=== PATIENT | female | born 1975 | race Caucasian/White ===

== ENCOUNTER 2017-01-06 11:56 | Emergency (ER) | payer OTHER ==
[2017-01-06 12:02] VITALS: BP 128/86; TEMP 99; BMI 41.8
[2017-01-06] MEDS ORDERED: SODIUM CHLORIDE 1,000 ML IV STA (12:20)
[2017-01-06] MEDS ORDERED: ZOFRAN 4 MG/2 ML IVP STA (12:20)
--- NOTE | 2017-01-06 12:21 | ED.PDOC ---
General ED Provider: Dr. CRUZ ALANIZ JR Chief Complaint: Nausea/Vomiting Stated Complaint: has had nausea with vomiting off and on since .-- epigastric discomfort that radiates thru to back-some dizziness at times-- chills at intervals. [ End ]1 week 99.0 65 16 97% 128/86 6/10 emesis couple times a day uses camilo once for back no benefit taking food and fluids fair Time Seen by Physician: 12:21 Mode of Arrival: Walk-In Information Source: Patient Exam Limitations: No limitations Primary Care Provider: LISA WEEKS Nursing and Triage Documentation Reviewed and Agree: No Review of Systems - Review Of Systems Constitutional: Reports: Chills, Fever, Malaise, Weakness Eyes: Reports: No symptoms Ears, Nose, Mouth, Throat: Reports: No symptoms Respiratory: Reports: No symptoms Cardiac: Reports: Lightheadedness GI: Reports: Abdominal pain, Nausea, Vomiting : Reports: No symptoms Musculoskeletal: Reports: Back pain (new) Skin: Reports: No symptoms Neurological: Reports: Other (dizzy) Endocrine: Reports: No symptoms Hematologic/Lymphatic: Reports: No symptoms All Other Systems: Other Past Medical History - Past Medical History Endocrine: Reports: None Cardiovascular: Reports: None Respiratory: Reports: None Hematological: Reports: None Gastrointestinal: Reports: None Genitourinary: Reports: None Neuro/Psych: Reports: Migraine, Depression Musculoskeletal: Reports: None Cancer: Reports: None Last Menstrual Period: hysterectomy - Surgical History General Surgical History: Reports: Hysterectomy, Cholecystectomy, Tonsillectomy - Family History Family History: Reports: None - Social History Smoking Status: Never smoker Hx Substance Use: No Alcohol Screening: None Physical Exam - Physical Exam Appearance: Ill-appearing Ill-appearing: Mild Pain Distress: Mild Eyes: [place], EOMI, Conjunctiva clear ENT: Ears normal, Nose normal, Oropharynx normal Neck: Supple Respiratory: Airway patent, Breath sounds clear, Breath sounds equal, Respirations nonlabored Cardiovascular: RRR, Pulses normal, No rub, No murmur GI/: Soft, No masses, Bowel sounds normal, No Organomegaly, Tender (RUQ LUQ) Musculoskeletal: Normal strength, ROM intact, No edema, No calf tenderness Skin: Warm, Dry, Normal color Neurological: Sensation intact, Motor intact, Reflexes intact, Cranial nerves intact, Alert, Oriented Psychiatric: Affect appropriate, Mood appropriate Critical Care Note - Critical Care Note Total Time (mins): 0 Course - Course Hematology/Chemistry: 01/06/17 12:35 01/06/17 12:35 Orders, Labs, Meds: Lab Review 01/06/17 01/06/17 12:30 12:35 WBC 5.21 RBC 4.25 Hgb 11.9 L Hct 35.3 L MCV 83.1 MCH 28.0 MCHC 33.7 RDW Coeff of Melanie 12.8 Plt Count 300 Immature Gran % (Auto) 0.4 Neut % (Auto) 62.2 Lymph % (Auto) 28.4 [place] % (Auto) 7.1 Eos % (Auto) 1.3 Baso % (Auto) 0.6 Immature Gran # (Auto) 0.0 Neut # 3.2 Lymph # 1.5 [place] # 0.4 Eos # 0.1 Baso # 0.0 Sodium 139 Potassium 3.8 Chloride 103 Carbon Dioxide 24 Anion Gap 15.8 BUN 16 Creatinine 0.87 Estimated GFR (MDRD) 72.00 BUN/Creatinine Ratio 18.39 Glucose 96 Calcium 9.5 Total Bilirubin 0.67 AST 14 L ALT 17 Alkaline Phosphatase 95 Total Protein 8.0 Albumin 3.8 Globulin 4.2 Albumin/Globulin Ratio 0.90 Amylase 31 Lipase 12 Procalcitonin < 0.05 Urine Color Yellow Urine Clarity Clear Urine pH 6.5 Ur Specific [place] 1.025 Urine Protein Negative Urine Glucose (UA) Negative Urine Ketones Negative Urine Blood Trace-lysed Urine Nitrite Negative Urine Bilirubin Negative Urine Urobilinogen 1.0 Ur Leukocyte Esterase Negative Urine Microscopic RBC 0-2 Ur Squamous Epith Cells 0-2 H. pylori IgG Antibody Negative Orders Category Date Time Status ED IV/MEDIPORT/POWERPORT .ONCE EMERGENCY 01/06/17 12:19 Active ED IV/MEDIPORT/POWERPORT .ONCE EMERGENCY 01/06/17 12:20 Inactive AMYLASE Stat LAB 01/06/17 12:35 Completed BLOOD CULTURE Stat LAB 01/06/17 12:35 Received CBC W/ AUTO DIFF Stat LAB 01/06/17 12:35 Completed COMPREHENSIVE METABOLIC PANEL Stat LAB 01/06/17 12:35 Completed H. PYLORI SCREEN Stat LAB 01/06/17 12:35 Completed LIPASE Stat LAB 01/06/17 12:35 Completed PROCALCITONIN Stat LAB 01/06/17 12:35 Completed URINALYSIS C & S IF INDICATED Stat LAB 01/06/17 12:30 Completed 0.9 % Sodium Chloride [Saline Flush] MEDS 01/06/17 12:19 Active 1 syr IVF PRN PRN Ondansetron HCl/Pf [Zofran 4 mg/2 ml] MEDS 01/06/17 12:20 Discontinued 4 mg IVP ONCE STA Sodium Chloride 0.9% [Sodium Chloride] 1,000 ml MEDS 01/06/17 12:[address] ABDOMEN/PELVIS WO CONTRAST Stat RADS 01/06/17 12:19 Completed Medications Generic Name Dose Route Start Last Admin Trade Name Freq PRN Reason Stop Dose Admin Sodium Chloride 1 syr 01/06/17 12:19 Saline Flush IVF PRN PRN To flush IV Discontinued Medications Generic Name Dose Route Start Last Admin Trade Name Freq PRN Reason Stop Dose Admin Sodium Chloride 1,000 mls @ 1,000 mls/hr 01/06/17 12:20 01/06/17 13:07 Sodium Chloride IV 01/06/17 13:19 1,000 mls/hr BOLUS STA Administration Ondansetron HCl 4 mg 01/06/17 12:20 01/06/17 13:07 Zofran 4 Mg/2 Ml IVP 01/06/17 12:21 4 mg ONCE STA Administration Vital Signs: Temp Pulse Resp BP Pulse Ox 01/06/17 11:56 99 F 65 16 128/86 97 Departure - Departure Time of Disposition: 14:26 Disposition: HOME SELF-CARE Discharge Problem: Nausea, Vomiting Instructions: Gastritis (ED) Condition: Good Pt referred to PMD for follow-up: Yes Additional Instructions: clear liquids for 8-12 hours after vomiting recheck PMD one week Prescriptions: Ondansetron HCl [Zofran Tab] 4 mg PO QID PRN #12 tablet PRN Reason: Nausea / Vomiting Allergies/Adverse Reactions: Allergies codeine Allergy (Severe, Verified 01/06/17 12:04) difficulty breathing Notified to get medical alert necklace tramadol Allergy (Severe, Verified 01/06/17 12:04) difficulty breathing Home Medications: Ambulatory Orders Fluoxetine HCl [Prozac] 60 mg PO DAILY 07/10/15 Prozosin 2 mg DAILY 12/17/15 Ranitidine HCl [Zantac] 300 mg PO 2xdaily 12/17/15 Ondansetron HCl [Zofran Tab] 4 mg PO QID PRN #12 tablet 01/06/17
[2017-01-06 12:53] LABS: BASOPHILS % (AUTO) 0.6 % (0.0-3.0); EOSINOPHILS # (AUTO) 0.1 K/ul (0.0-0.7); EOSINOPHILS % (AUTO) 1.3 % (0.0-7.0); HEMATOCRIT 35.3 % (37.0-47.0); HEMOGLOBIN 11.9 g/dl (12.0-16.0); IMMATURE GRANULOCYTE % (AUTO) 0.4 % (0.0-5.0); LYMPHOCYTES # (AUTO) 1.5 K/uL (0.60-3.4); LYMPHOCYTES % (AUTO) 28.4 (10.0-50.0); MEAN CORPUSCULAR HGB CONC 33.7 (31.8-35.4); MEAN CORPUSCULAR VOLUME 83.1 fl (81.0-99.0); MONOCYTES # (AUTO) 0.4 K/uL (0.4-2.0); MONOCYTES % (AUTO) 7.1 (0-10); NEUTROPHILS # (AUTO) 3.2 K/ul (2.0-6.9); NEUTROPHILS % (AUTO) 62.2; PLATELET COUNT 300 10^3/uL (140-440); RED BLOOD COUNT 4.25 10^6/ul (4.20-5.40); WHITE BLOOD COUNT 5.21 K/ul (4.6-10.2)
[2017-01-06 12:54] LABS: BILIRUBIN,URINE Negative (NEGATIVE); KETONES,URINE Negative (NEGATIVE); LEUKOCYTE ESTERASE ,URINE Negative (NEGATIVE); NITRITE,URINE Negative (NEGATIVE); PH,URINE 6.5 (5-9); PROTEIN,URINE Negative (NEGATIVE); URINE, BLOOD Trace-lysed (NEGATIVE)
[2017-01-06 13:01] LABS: ADD URINE MICROSCOPIC YES
[2017-01-06 13:13] LABS: ALBUMIN 3.8 g/dL (3.4-5.0); ALBUMIN/GLOBULIN RATIO 0.9; ANION GAP 15.8; BILIRUBIN,TOTAL 0.67 mg/dL (0.00-1.20); BUN/CREATININE RATIO 18.39; CALCIUM 9.5 mg/dL (8.2-10.2); CREATININE 0.87 mg/dL (0.60-1.30); H. PYLORI ANTIBODY NEGATIVE (NEGATIVE); H.PYLORI INTERNAL QC INTERNAL QC VALID; POTASSIUM 3.8 mmol/L (3.5-5.10)
--- NOTE | 2017-01-06 13:43 | CT ---
EXAM: CT ABDOMEN AND PELVIS HISTORY: Mid abdominal pain TECHNIQUE: CT abdomen and pelvis without intravenous contrast. Images were reconstructed using 5 m m section thickness. Reformations were prepared. COMPARISON: None FINDINGS: Diagnostic limitations exist without including contrast enhanced images. No focal hepatic or spleni c lesions are identified. Gallbladder is absent. Pancreas, adrenal glands, kidneys and ureters yvette ear normal. Normal abdominal aorta. The mesenteric root fat has a haley appearance and there are mu ltiple tiny mesenteric root lymph nodes. Stomach appears grossly normal. Normal appendix. Unremarkable bowel gas pattern. No uterus is ingrid ntified. Urinary bladder appears normal. There is no ascites. No significant ventral abdominal wall defect. Bones are within normal limits. Lung bases are clear . No pneumoperitoneum. IMPRESSION: 1. The mesenteric root fat has a haley appearance and there are multiple tiny mesenteric root lymph nodes. Differential diagnosis includes likely mesenteric panniculitis or simply an etiopathic caus e given relatively unremarkable exam otherwise. Associations with inflammatory bowel disease, hepat ic cirrhosis and neoplasia (lymphoma/gastric carcinoma) would be less likely. 2. Otherwise unremarkable exam.
== END 2017-01-06 14:45 | disposition home or self-care (01) ==
LOC: ED 11:56
DX: R11.2 Nausea with vomiting, unspecified (principal); R10.13 Epigastric pain; R42 Dizziness and giddiness; M54.9 Dorsalgia, unspecified
CPT/HCPCS: 36415; 80053; 81001; 82150; 83690; 84145; 85025; 86677; 87040; 96361; 96374; 99283

== ENCOUNTER 2017-02-16 06:52 | Inpatient (IN) ==
--- NOTE | 2017-02-16 07:06 | ED.PDOC ---
Medical Screening Exam - General Information Time Seen by Physician*: 07:02 Mode of Arrival: Walk-In Information Source: Patient - History Chief Complaint: Dizziness Interpretation - EKG Interpretation Time of EKG #1: 07:41 Rate: Nayan Rhythm: Sinus (49) Ectopy: None [place]: NL ST Segment: Normal Course - Course Orders, Labs, Meds: Orders Category Date Time Status EKG-(ED ONLY) Stat CARDIO 02/16/17 07:26 Ordered IV ACCESS ONCE CARE 02/16/17 07:26 Ordered ED TEACHER LIP READING APPLIED .ONCE EMERGENCY 02/16/17 07:26 Ordered B-TYPE NATRIURETIC PEPTIDE Stat LAB 02/16/17 07:26 Ordered BLOOD CULTURE Stat LAB 02/16/17 07:27 Ordered CBC W/ AUTO DIFF Stat LAB 02/16/17 07:26 Ordered COMPREHENSIVE METABOLIC PANEL Stat LAB 02/16/17 07:26 Ordered CREATINE KINASE Stat LAB 02/16/17 07:26 Ordered D-DIMER Stat LAB 02/16/17 Ordered LACTIC ACID Stat LAB 02/16/17 07:27 Ordered PROCALCITONIN Stat LAB 02/16/17 Ordered PT WITH INR Stat LAB 02/16/17 07:26 Ordered TROPONIN I Stat LAB 02/16/17 07:26 Ordered URINALYSIS C & S IF INDICATED Stat LAB 02/16/17 07:26 Uncollected CHEST, 2 VIEWS PA & LAT Stat RADS 02/16/17 07:29 Ordered Vital Signs: Temp Pulse Resp BP Pulse Ox 02/16/17 06:52 98.2 F 60 16 109/73 98 Departure - Departure Allergies/Adverse Reactions: Allergies codeine Allergy (Severe, Verified 02/16/17 06:59) difficulty breathing Notified to get medical alert necklace tramadol Allergy (Severe, Verified 02/16/17 06:59) difficulty breathing Home Medications: Ambulatory Orders Fluoxetine HCl [Prozac] 60 mg PO DAILY 07/10/15 Ranitidine HCl [Zantac] 300 mg PO 2xdaily 12/17/15 Ondansetron HCl [Zofran Tab] 4 mg PO QID PRN #12 tablet 01/06/17
[2017-02-16 07:44] LABS: BILIRUBIN,URINE Negative (NEGATIVE); KETONES,URINE Negative (NEGATIVE); LEUKOCYTE ESTERASE ,URINE Negative (NEGATIVE); NITRITE,URINE Negative (NEGATIVE); PROTEIN,URINE Negative (NEGATIVE); URINE, BLOOD Negative (NEGATIVE)
[2017-02-16 07:46] LABS: ADD URINE MICROSCOPIC NO
[2017-02-16 07:57] LABS: BASOPHILS % (AUTO) 0.6 % (0.0-3.0); EOSINOPHILS # (AUTO) 0.1 K/ul (0.0-0.7); HEMATOCRIT 33.5 % (37.0-47.0); HEMOGLOBIN 10.9 g/dl (12.0-16.0); IMMATURE GRANULOCYTE % (AUTO) 0.4 % (0.0-5.0); LYMPHOCYTES # (AUTO) 1.2 K/uL (0.60-3.4); LYMPHOCYTES % (AUTO) 24.9 (10.0-50.0); MEAN CORPUSCULAR HEMOGLOBIN 27.5 pg (27.0-31.0); MEAN CORPUSCULAR HGB CONC 32.5 (31.8-35.4); MEAN CORPUSCULAR VOLUME 84.4 fl (81.0-99.0); MONOCYTES # (AUTO) 0.4 K/uL (0.4-2.0); MONOCYTES % (AUTO) 8.4 (0-10); NEUTROPHILS # (AUTO) 3.2 K/ul (2.0-6.9); NEUTROPHILS % (AUTO) 64.7; PLATELET COUNT 244 10^3/uL (140-440); RED BLOOD COUNT 3.97 10^6/ul (4.20-5.40); WHITE BLOOD COUNT 4.89 K/ul (4.6-10.2)
--- NOTE | 2017-02-16 08:01 | ED.PDOC ---
General ED Provider: Dr. CRUZ ALANIZ JR Chief Complaint: Dizziness Stated Complaint: fatigue YESTERDAY-lightheaded then dizzy-. sweating alot lately-sx started while at. work-here for work AGAIN today feels. exhausted- home yesterday, fell asleep in. chair-similar episodesinfrequent-did not. see PMD[End]98.2 60 16 98% 109/73 06/29 FATIGUE DIAPHORESIS LAST EPISODE 2 MONTHS. AGO dizzy/fatigue. : 02/04/14 RAFATI: Chest Pain(this is. chronic problem for months): Gradual: months. :Depression:Atypical angina:Chest Pain (ED), Angina(ED),Thoracic Pain(ED). : 05/06/15 : CORBIN MARTINEZ: DEPRESSION AND FEELING. OVERWHELMED. IS HAVING THOUGHTS OF HARMING. HERSELF, PT. DID HAVE A SPECIFIC PLAN OF. CUTTING THE WRISTS.[End]PT. IS HAVING. DEPRESSION AND SUICIDAL THOUGHTS, WITH A. PLAN.[End]. states no improvement worse. after seeing psychologist saw same today. feels like slitting her wrists, was better. on abilify but unable to afford and medicaid. does not cover agrees to see counsellor. agrees to labs denies medication overdose. Primary Care Provider: MAU DAMON: Migraine, Depression: Hysterectomy,. Cholecystectomy, Tonsillectomy. : TSF TO PSYCH HOSP/UNIT: Suicidal ideation: Suicide Prevention for Adults (ED): THIS PATIENT; MARLA CANALES, IS MEDICALLY. STABLE SHE IS MEDICALLY CLEARED FOR. PSYCHIATRIC ADMISSION SHE HAS A STATED. HISTORY OF PTSD AND DEPRESSION,. SHE COMPLAINS TODAY OF BEING SUICIDAL. AND SHE VOICES INTENT TO SLIT HER WRISTS. CRUZ ALANIZ MD. codeine Allergy ( difficulty breathing. tramadol Allergy (difficulty breathing. [Zoloft] 100 mg PO DAILY 01/18/14. [Xanax] 0.5 mg PO DAILY 05/06/15. [Lamictal] 50 mg PO DAILY 05/06/15. : 07/10/15 RAFATI: Fall: neck pain, headache(from standing postion slipped over ice): acute headache [Prozac] 40 mg PO DAILY. 07/10/15. : 10/27/15 RAFATI: Finger Pain/Injury dorasl aspect: Sprain of hand, right. [ Prozac] [[place] [id number]]. : 01/06/17. : Nausea/Vomiting. Stated Complaint: has had nausea with. vomiting off and on since thurs.--epigastric. discomfort that radiates thru to back-some. dizziness at times--chills at intervals. : Gastritis (ED)[Prozac] Prozosin 2 mg DAILY [Zantac] [Zofran Tab]. patietn much improved after fluids,. note equivocal CT will follow up with PMD. clear liquids after emesis. zofran written. (mesenteric root fat, panniculitis ? IBD. hepatic cirrosis, lymphogastric carcinoma) Time Seen by Physician: 07:20 Mode of Arrival: Walk-In Information Source: Patient Exam Limitations: No limitations Primary Care Provider: LISA WEEKS Nursing and Triage Documentation Reviewed and Agree: No Review of Systems - Review Of Systems Constitutional: Reports: Diaphoresis, Malaise, Weakness Eyes: Reports: No symptoms Ears, Nose, Mouth, Throat: Reports: No symptoms Respiratory: Reports: No symptoms Cardiac: Reports: Lightheadedness GI: Reports: No symptoms : Reports: No symptoms Musculoskeletal: Reports: No symptoms Skin: Reports: No symptoms Neurological: Reports: Weakness, Other (dizzy) Endocrine: Reports: No symptoms Hematologic/Lymphatic: Reports: No symptoms All Other Systems: Other Past Medical History - Past Medical History Endocrine: Reports: None Cardiovascular: Reports: None Respiratory: Reports: None Hematological: Reports: None Gastrointestinal: Reports: None Genitourinary: Reports: None Neuro/Psych: Reports: Migraine, Depression Musculoskeletal: Reports: None Cancer: Reports: None Last Menstrual Period: hysterectomy - Surgical History General Surgical History: Reports: Hysterectomy, Cholecystectomy, Tonsillectomy - Family History Family History: Reports: None - Social History Smoking Status: Never smoker Hx Substance Use: No Alcohol Screening: None Physical Exam - Physical Exam Appearance: Well-appearing, Obese Pain Distress: Mild Eyes: [place], EOMI, Conjunctiva clear ENT: Ears normal, Nose normal, Oropharynx normal Neck: Supple Respiratory: Airway patent, Breath sounds equal, Respirations nonlabored, Rhonchi Cardiovascular: RRR, No rub, No murmur, Bradycardia GI/: Soft, Nontender, No masses, Bowel sounds normal, No Organomegaly Musculoskeletal: Normal strength, ROM intact, No edema, Calf tenderness (right > > left tenderness actually prominen anterior shins not excoriated rash anteroir shins) Skin: Warm, Dry, Normal color Neurological: Sensation intact, Motor intact, Reflexes intact, Cranial nerves intact, Alert, Oriented Psychiatric: Affect appropriate, Mood appropriate Interpretation - Radiology Interpretation Radiology Interpretation By: Radiologist Radiology Results: No acute changes Exam Interpreted: CXR Radiology Interpretation By: Radiologist Exam Interpreted: CT Scan (chest no pe) - EKG Interpretation Time of EKG #1: 07:35 Rate: Nayan (49) Rhythm: Sinus Critical Care Note - Critical Care Note Total Time (mins): 20 Course - Course Hematology/Chemistry: 02/16/17 07:45 02/16/17 07:45 Orders, Labs, Meds: Lab Review 02/16/17 02/16/17 02/16/17 07:20 07:43 07:45 WBC 4.89 RBC 3.97 L Hgb 10.9 L Hct 33.5 L MCV 84.4 MCH 27.5 MCHC 32.5 RDW Coeff of Melanie 13.2 Plt Count 244 Immature Gran % (Auto) 0.4 Neut % (Auto) 64.7 Lymph % (Auto) 24.9 [place] % (Auto) 8.4 Eos % (Auto) 1.0 Baso % (Auto) 0.6 Immature Gran # (Auto) 0.0 Neut # 3.2 Lymph # 1.2 [place] # 0.4 Eos # 0.1 Baso # 0.0 PT 10.0 INR 0.98 D-Dimer (Manual) 602.69 Sodium 138 Potassium 4.1 Chloride 103 Carbon Dioxide 24 Anion Gap 15.1 BUN 16 Creatinine 0.85 Estimated GFR (MDRD) 74.00 BUN/Creatinine Ratio 18.82 Glucose 101 Lactic Acid 7.1 Calcium 9.8 Total Bilirubin 0.70 AST 16 ALT 16 Alkaline Phosphatase 83 Total Creatine Kinase 225 CK-MB (CK-2) 2.8 CK-MB (CK-2) % 1.21145 Troponin I < 0.0100 B-Natriuretic Peptide 52 Total Protein 7.2 Albumin 3.8 Globulin 3.4 Albumin/Globulin Ratio 1.12 Cholesterol 173 Procalcitonin < 0.05 TSH 3.037 Urine Color Yellow Urine Clarity Clear Urine pH 7.0 Ur Specific [place] 1.020 Urine Protein Negative Urine Glucose (UA) Negative Urine Ketones Negative Urine Blood Negative Urine Nitrite Negative Urine Bilirubin Negative Urine Urobilinogen 1.0 Ur Leukocyte Esterase Negative Urine Opiates Screen Negative Ur Oxycodone Screen Negative Urine Methadone Screen Negative Ur Propoxyphene Screen Negative Ur Barbiturates Screen Negative U Tricyclic Antidepress Negative Ur Phencyclidine Scrn Negative Ur Amphetamine Screen Negative U Methamphetamines Scrn Negative U Benzodiazepines Scrn Positive Urine Cocaine Screen Negative U Cannabinoids Screen Negative Orders Category Date Time Status PLACE PATIENT OBSERVATION .TO MEDSURG (MONITORED BED ADMISSION 02/16/17 11: 12 Active ) EKG-(ED ONLY) Stat CARDIO 02/16/17 07:26 Completed EKG-(IP & OP ONLY) DAILY CARDIO 02/17/17 06:00 Ordered EKG-(IP & OP ONLY) DAILY CARDIO 02/18/17 06:00 Ordered EKG-(IP & OP ONLY) DAILY CARDIO 02/19/17 06:00 Ordered HOLTER MONITOR Routine CARDIO 02/16/17 10:00 Completed ACTIVITY .Early Mobilization for VTE Prevention CARE 02/16/17 11:12 Active BLOOD GLUCOSE MONITORING 0630,1100,1700,2100 CARE 02/16/17 11:13 Active INTAKE & OUTPUT Q8HR CARE 02/16/17 11:12 Active IV ACCESS ONCE CARE 02/16/17 07:26 Active NPO REMINDER: IMAGING ONCE CARE 02/16/17 09:59 Completed TELEMETRY MONITORING TELE CARE 02/16/17 11:12 Active VITAL SIGNS Q4HR CARE 02/16/17 11:12 Active CARDIAC DIET DIETARY 02/16/17 Lunch Ordered ED REAL ESTATE CLOSER APPLIED .ONCE EMERGENCY 02/16/17 07:26 Active B-TYPE NATRIURETIC PEPTIDE Stat LAB 02/16/17 07:45 Completed BLOOD CULTURE Stat LAB 02/16/17 07:45 Received CBC W/ AUTO DIFF DAILY@0600 LAB 02/17/17 06:00 Ordered CBC W/ AUTO DIFF DAILY@0600 LAB 02/18/17 06:00 Ordered CBC W/ AUTO DIFF DAILY@0600 LAB 02/19/17 06:00 Ordered CBC W/ AUTO DIFF DAILY@0600 LAB 02/20/17 06:00 Ordered CBC W/ AUTO DIFF DAILY@0600 LAB 02/21/17 06:00 Ordered CBC W/ AUTO DIFF DAILY@0600 LAB 02/22/17 06:00 Ordered CBC W/ AUTO DIFF DAILY@0600 LAB 02/23/17 06:00 Ordered CBC W/ AUTO DIFF DAILY@0600 LAB 02/24/17 06:00 Ordered CBC W/ AUTO DIFF DAILY@0600 LAB 02/25/17 06:00 Ordered CBC W/ AUTO DIFF DAILY@0600 LAB 02/26/17 06:00 Ordered CBC W/ AUTO DIFF DAILY@0600 LAB 02/27/17 06:00 Ordered CBC W/ AUTO DIFF DAILY@0600 LAB 02/28/17 06:00 Ordered CBC W/ AUTO DIFF DAILY@0600 LAB 03/01/17 06:00 Ordered CBC W/ AUTO DIFF DAILY@0600 LAB 03/02/17 06:00 Ordered CBC W/ AUTO DIFF DAILY@0600 LAB 03/03/17 06:00 Ordered CBC W/ AUTO DIFF DAILY@0600 LAB 03/04/17 06:00 Ordered CBC W/ AUTO DIFF DAILY@0600 LAB 03/05/17 06:00 Ordered CBC W/ AUTO DIFF DAILY@0600 LAB 03/06/17 06:00 Ordered CBC W/ AUTO DIFF DAILY@0600 LAB 03/07/17 06:00 Ordered CBC W/ AUTO DIFF DAILY@0600 LAB 03/08/17 06:00 Ordered CBC W/ AUTO DIFF Stat LAB 02/16/17 07:45 Completed COMPREHENSIVE METABOLIC PANEL DAILY@0600 LAB 02/17/17 06:00 Ordered COMPREHENSIVE METABOLIC PANEL DAILY@0600 LAB 02/18/17 06:00 Ordered COMPREHENSIVE METABOLIC PANEL DAILY@0600 LAB 02/19/17 06:00 Ordered COMPREHENSIVE METABOLIC PANEL DAILY@0600 LAB 02/20/17 06:00 Ordered COMPREHENSIVE METABOLIC PANEL DAILY@0600 LAB 02/21/17 06:00 Ordered COMPREHENSIVE METABOLIC PANEL DAILY@0600 LAB 02/22/17 06:00 Ordered COMPREHENSIVE METABOLIC PANEL DAILY@0600 LAB 02/23/17 06:00 Ordered COMPREHENSIVE METABOLIC PANEL DAILY@0600 LAB 02/24/17 06:00 Ordered COMPREHENSIVE METABOLIC PANEL DAILY@0600 LAB 02/25/17 06:00 Ordered COMPREHENSIVE METABOLIC PANEL DAILY@0600 LAB 02/26/17 06:00 Ordered COMPREHENSIVE METABOLIC PANEL DAILY@0600 LAB 02/27/17 06:00 Ordered COMPREHENSIVE METABOLIC PANEL DAILY@0600 LAB 02/28/17 06:00 Ordered COMPREHENSIVE METABOLIC PANEL DAILY@0600 LAB 03/01/17 06:00 Ordered COMPREHENSIVE METABOLIC PANEL DAILY@0600 LAB 03/02/17 06:00 Ordered COMPREHENSIVE METABOLIC PANEL DAILY@0600 LAB 03/03/17 06:00 Ordered COMPREHENSIVE METABOLIC PANEL DAILY@0600 LAB 03/04/17 06:00 Ordered COMPREHENSIVE METABOLIC PANEL DAILY@0600 LAB 03/05/17 06:00 Ordered COMPREHENSIVE METABOLIC PANEL DAILY@0600 LAB 03/06/17 06:00 Ordered COMPREHENSIVE METABOLIC PANEL DAILY@0600 LAB 03/07/17 06:00 Ordered COMPREHENSIVE METABOLIC PANEL DAILY@0600 LAB 03/08/17 06:00 Ordered COMPREHENSIVE METABOLIC PANEL Stat LAB 02/16/17 07:45 Completed CREATINE KINASE Q8H LAB 02/16/17 17:20 Completed CREATINE KINASE Q8H LAB 02/17/17 01:15 Ordered CREATINE KINASE Stat LAB 02/16/17 07:45 Completed D-DIMER Stat LAB 02/16/17 07:45 Completed DRUG SCREEN (RAPID FOR ED) [DRUG SCREEN, URINE, RAPID] LAB 02/16/17 07:43 Completed Stat LACTIC ACID Stat LAB 02/16/17 07:45 Completed PROCALCITONIN Stat LAB 02/16/17 07:45 Completed PT WITH INR Stat LAB 02/16/17 07:45 Completed TROPONIN I Q8H LAB 02/16/17 17:20 Completed TROPONIN I Q8H LAB 02/17/17 01:15 Ordered TROPONIN I Stat LAB 02/16/17 07:45 Completed TSH [THYROID STIMULATING HORMONE] Stat LAB 02/16/17 07:45 Completed URINALYSIS C & S IF INDICATED Stat LAB 02/16/17 07:20 Completed Acetaminophen [Tylenol] MEDS 02/16/17 11:12 Active 650 mg PO Q4H PRN Ketorolac Tromethamine [Toradol] MEDS 02/16/17 08:50 Discontinued 60 mg IM ONCE STA Lorazepam [Ativan] MEDS 02/16/17 11:22 Active 0.5 mg PO TID PRN Ondansetron HCl [Zofran Tab] MEDS 02/16/17 11:22 Active 4 mg PO QID PRN RESUSCITATION STATUS Routine OTHERS 02/16/17 11:12 Ordered CHEST, 2 VIEWS PA & LAT Stat RADS 02/16/17 07:[address] CHEST PE PROTOCOL Stat RADS 02/16/17 09:59 Completed Medications Generic Name Dose Route Start Last Admin Trade Name Freq PRN Reason Stop Dose Admin Acetaminophen 650 mg 02/16/17 11:12 Tylenol PO Q4H PRN Mild Pain Fluoxetine HCl 60 mg 02/17/17 09:00 Prozac PO DAILY MAURI Sodium Chloride 1,000 mls @ 40 mls/hr 02/16/17 13:00 02/16/17 14:36 Sodium Chloride IV 40 mls/hr .Q25H MAURI Administration Lorazepam 0.5 mg 02/16/17 11:22 Ativan PO TID PRN Anxiety Ondansetron HCl 4 mg 02/16/17 11:22 Zofran Tab PO QID PRN Nausea / Vomiting Ranitidine HCl 300 mg 02/16/17 12:30 02/16/17 14:36 Zantac PO 300 mg BID MAURI Administration Discontinued Medications Generic Name Dose Route Start Last Admin Trade Name Freq PRN Reason Stop Dose Admin Ketorolac Tromethamine 60 mg 02/16/17 08:50 02/16/17 09:03 Toradol IM 02/16/17 08:51 Not Given ONCE STA Vital Signs: Temp Pulse Resp BP Pulse Ox 02/16/17 06:52 98.2 F 60 16 109/73 98 SHANICE Risk Score SHANICE Risk Score: Risk Score Odds of by 30D 0 0.1 (0.1-0.2) 1 0.3 (0.2-0.3) 2 0.4 (0.3-0.5) 3 0.7 (0.6-0.9) 4 1.2 (1.0-1.5) 5 2.2 (1.9-2.6) 6 3.0 (2.5-3.6) 7 4.8 (3.8-6.1) Departure - Departure Time of Disposition: 12:00 Disposition: ADMITTED INPATIENT Discharge Problem: Symptomatic bradycardia Condition: Stable Pt referred to PMD for follow-up: Yes Allergies/Adverse Reactions: Allergies codeine Allergy (Severe, Verified 02/16/17 06:59) difficulty breathing Notified to get medical alert necklace tramadol Allergy (Severe, Verified 02/16/17 06:59) difficulty breathing Home Medications: Ambulatory Orders Fluoxetine HCl [Prozac] 60 mg PO DAILY 07/10/15 Ranitidine HCl [Zantac] 300 mg PO 2xdaily 12/17/15 Ondansetron HCl [Zofran Tab] 4 mg PO QID PRN #12 tablet 01/06/17 Lorazepam [Ativan] 0.5 mg PO TID PRN 02/16/17
[2017-02-16 08:03] LABS: COCAIN SCREEN,URINE NEGATIVE (NEGATIVE)
--- NOTE | 2017-02-16 08:05 | DI ---
EXAM: Chest two view, frontal and lateral views. HISTORY: Diaphoresis. Fatigue. COMPARISON: 02/04/2014. FINDINGS: The heart size is normal. There is no pulmonary vascular congestion. The lungs are anastasiya r. No pleural effusion or pneumothorax is seen. No acute osseous abnormality identified. Clips se en in the upper abdomen. Since the prior study, there has been no significant interval change. IMPRESSION: No acute cardiopulmonary process.
[2017-02-16 08:34] LABS: ALANINE AMINOTRANSFERASE 16 U/L (12-78); ALBUMIN 3.8 g/dL (3.4-5.0); ALBUMIN/GLOBULIN RATIO 1.12; ALKALINE PHOSPHATASE 83 U/L (42-98); ANION GAP 15.1; ASPARTATE AMINO TRANSFERASE 16 U/L (15-37); BLOOD UREA NITROGEN 16 mg/dL (7-18); BUN/CREATININE RATIO 18.82; CALCIUM 9.8 mg/dL (8.2-10.2); CARBON DIOXIDE 24 mmol/L (21-32); CHLORIDE 103 mmol/L (98-107); CREATINE KINASE 225 U/L; CREATININE 0.85 mg/dL (0.60-1.30); GLUCOSE 101 mg/dL (70-110); POTASSIUM 4.1 mmol/L (3.5-5.10); SODIUM 138 mmol/L (136-145); TOTAL PROTEIN 7.2 g/dL (6.4-8.2)
[2017-02-16 08:35] LABS: CREATINE KINASE MB 2.8 ng/ml (0.0-3.6)
[2017-02-16] MEDS ORDERED: TORADOL IM STA (08:50)
--- NOTE | 2017-02-16 11:04 | CT ---
EXAM: CTA CHEST (PE PROTOCOL) HISTORY: Weakness, positive D-dimer TECHNIQUE: CTA with intravenous contrast. Multiplanar images were provided with 3-D reconstruction s. 100 mL Omnipaque. COMPARISON: None FINDINGS: No pulmonary arterial filling defects are identified. Normal heart size with no pericardial effusio n. Normal thoracic aorta. Tiny calcified left mid lung nodule consistent with a benign calcified granuloma. Lungs are otherwi se unremarkable. No consolidated pneumonia or vascular congestion. No pneumothorax or pleural flui d. Bones are within normal limits. IMPRESSION: 1. No pulmonary arterial thromboembolism. 2. Lungs are clear.
[2017-02-16] MEDS ORDERED: TYLENOL PO PRN (11:12)
[2017-02-16] MEDS ORDERED: ZOFRAN TAB PO PRN (11:22)
[2017-02-16] MEDS ORDERED: ATIVAN PO PRN (11:22)
[2017-02-16] MEDS ORDERED: NON-FORMULARY MEDICATION (Ranitidine Hcl [Zantac] 300 MG) PO SCH ×22 (11:30)
[2017-02-16 12:38] VITALS: BMI 39.2
[2017-02-16] MEDS: ZANTAC PO SCH ×2 (14:36→20:41)
[2017-02-16] MEDS: SODIUM CHLORIDE 1,000 ML IV SCH (14:36)
--- NOTE | 2017-02-16 16:01 | CT ---
EXAM: CT of the head without contrast History: Dizziness. Comparison: Head CT 12/04/2015 Technique: Multiplanar CT images through the head were obtained without the administration of IV co ntrast Findings: The visualized paranasal sinuses and mastoid air cells are clear in general. No acute ca lvarial abnormalities. Intracranially the ventricular and cisternal spaces are normal in size, shape and configuration for a patient of this age. No dominant mass or midline shift. No hydrocephalous. No acute intracrania l hemorrhage or abnormal extraaxial fluid collections. Impression: No acute intracranial process. No change compared to the prior study.
[2017-02-16 18:00] LABS: CREATINE KINASE 171 U/L
[2017-02-16 18:01] LABS: CREATINE KINASE MB 1.7 ng/ml (0.0-3.6)
[2017-02-17 01:06] LABS: BASOPHILS # (AUTO) 0.1 K/uL (0-0.2); BASOPHILS % (AUTO) 1.7 % (0.0-3.0); EOSINOPHILS # (AUTO) 0.1 K/ul (0.0-0.7); EOSINOPHILS % (AUTO) 1.5 % (0.0-7.0); HEMATOCRIT 33.1 % (37.0-47.0); HEMOGLOBIN 10.8 g/dl (12.0-16.0); IMMATURE GRANULOCYTE % (AUTO) 0.6 % (0.0-5.0); LYMPHOCYTES # (AUTO) 1.8 K/uL (0.60-3.4); LYMPHOCYTES % (AUTO) 32.4 (10.0-50.0); MEAN CORPUSCULAR HEMOGLOBIN 27.6 pg (27.0-31.0); MEAN CORPUSCULAR HGB CONC 32.6 (31.8-35.4); MEAN CORPUSCULAR VOLUME 84.7 fl (81.0-99.0); MONOCYTES # (AUTO) 0.6 K/uL (0.4-2.0); MONOCYTES % (AUTO) 10.7 (0-10); NEUTROPHILS # (AUTO) 2.9 K/ul (2.0-6.9); NEUTROPHILS % (AUTO) 53.1; PLATELET COUNT 227 10^3/uL (140-440); RED BLOOD COUNT 3.91 10^6/ul (4.20-5.40)
[2017-02-17 01:18] LABS: ALBUMIN 3.4 g/dL (3.4-5.0); ALBUMIN/GLOBULIN RATIO 1.1; BILIRUBIN,TOTAL 0.48 mg/dL (0.00-1.20); BUN/CREATININE RATIO 18.55; CALCIUM 9.2 mg/dL (8.2-10.2); CREATININE 0.97 mg/dL (0.60-1.30); TOTAL PROTEIN 6.5 g/dL (6.4-8.2)
[2017-02-17 01:34] LABS: CREATINE KINASE 133 U/L
[2017-02-17 01:53] LABS: CREATINE KINASE MB 1.1 ng/ml (0.0-3.6)
[2017-02-17] MEDS: ZANTAC PO SCH ×2 (08:31→20:08)
[2017-02-17] MEDS ORDERED: PROZAC PO SCH (09:00)
[2017-02-17] MEDS ORDERED: FLUOXETINE HCL 60 MG PO SCH (09:00)
[2017-02-17] MEDS ORDERED: SODIUM CHLORIDE 250 ML IV ONE (09:51)
[2017-02-17 10:06] LABS: IMMATURE RETIC FRACTION 8.9; RETICULOCYTE % 1.76 %
[2017-02-17] MEDS: SODIUM CHLORIDE 1,000 ML IV SCH ×2 (10:24→15:52)
[2017-02-17 10:51] LABS: FERRITIN 69.08 ng/mL (4.63-204.00); FOLATE 6.9 ng/mL (3.1-20.5)
[2017-02-17] MEDS ORDERED: DECADRON 4 MG/ML SDV IVP STA (15:10)
[2017-02-18 05:43] LABS: BASOPHILS % (AUTO) 0.2 % (0.0-3.0); HEMATOCRIT 33.8 % (37.0-47.0); HEMOGLOBIN 11.2 g/dl (12.0-16.0); IMMATURE GRANULOCYTE % (AUTO) 0.5 % (0.0-5.0); LYMPHOCYTES # (AUTO) 0.8 K/uL (0.60-3.4); LYMPHOCYTES % (AUTO) 12.6 (10.0-50.0); MEAN CORPUSCULAR HEMOGLOBIN 27.9 pg (27.0-31.0); MEAN CORPUSCULAR HGB CONC 33.1 (31.8-35.4); MEAN CORPUSCULAR VOLUME 84.3 fl (81.0-99.0); MONOCYTES # (AUTO) 0.3 K/uL (0.4-2.0); MONOCYTES % (AUTO) 4.5 (0-10); NEUTROPHILS % (AUTO) 82.2; PLATELET COUNT 253 10^3/uL (140-440); RED BLOOD COUNT 4.01 10^6/ul (4.20-5.40); WHITE BLOOD COUNT 6.02 K/ul (4.6-10.2)
[2017-02-18 06:06] LABS: ALBUMIN 3.7 g/dL (3.4-5.0); ANION GAP 18.3; BILIRUBIN,TOTAL 0.48 mg/dL (0.00-1.20); BUN/CREATININE RATIO 17.28; CALCIUM 9.9 mg/dL (8.2-10.2); CREATININE 0.81 mg/dL (0.60-1.30); POTASSIUM 4.3 mmol/L (3.5-5.10); TOTAL PROTEIN 7.4 g/dL (6.4-8.2)
[2017-02-18] MEDS ORDERED: FERROUS SULFATE PO SCH (09:00)
[2017-02-18] MEDS ORDERED: CELEXA PO SCH (09:00)
[2017-02-18] MEDS: ZANTAC PO SCH (09:10)
[2017-02-18 10:36] LABS: IGG P18 AB Absent (.); IGG P23 AB Absent (.); IGG P28 AB Absent (.); IGG P30 AB Absent (.); IGG P39 AB Absent (.); IGG P41 AB Absent (.); IGG P45 AB Absent (.); IGG P58 AB Present (.); IGG P66 AB Absent (.); IGG P93 AB Absent (.); IGM P39 AB Absent (.); IGM P41 AB Absent (.); LYME IGG WB INTERP Negative (.); LYME IGM WB INTERP Negative (.)
--- NOTE | 2017-02-18 10:56 | ECHO2D ---
Date of Exam: 02/17/17 Ordering Physician: HOSPITALIST HUE/EFRAIN WEEKS Reason for Echo: SYMPTOMATIC BRADYCARDIA, DIZZINESS, HYPOTENSION Room #: 109 M-Mode Normal Adult Results LV Dimensions Normal Adult Results AoV Opening excursions >1.6 >1.6 LVEDD-base- 3.5-5.8 4.3 Ao root dimensions 2.0-3.7 3.1 LVESD-base- 3.1-4.6 L. Atrium dimensions 1.9-3.8 3.9 Post. Wall thickness 0.8-1.1 1.2 IV septum (thickness) 0.7-1.2 1.2 Post. Wall excursion 0.72-1.3 NORMAL Septal motion NORMAL Systolic motion R. Ventricular cavity 1.5-2.0 NORMAL LVEF 60% 67% Paradoxical septal wall motion NORMAL 2-D : 2-D M Mode Echocardiogram was performed using apical four chamber and left parasternal long and short axis views. Mitral, tricuspid and aortic valves appear to be normal. Contractility of the left ventricle seems to be normal, so is the cavity size. Left atrial cavity size and aortic root appear to be normal. There is no pericardial effusion. There is no thrombus noted in the left ventricular or left aortic cavity. No mitral valve prolapse noted. M-MODE: MV: NORMAL AV: NORMAL TV: NORMAL PV: CHAMBER SIZE: NORMAL WALL MOTION: NORMAL PERICARDIUM: NORMAL INTERPRETATION: 1. BORDERLINE LEFT VENTRICULAR HYPERTROPHY 2. NORMAL VALVES 3. NORMAL LEFT VENTRICULAR CONTRACTILITY MTDD
[2017-02-18 11:13] VITALS: BP 110/63; TEMP 98.1
--- NOTE | 2017-02-18 11:33 | HOLTER ---
PATIENT INFORMATION AND COMMENTS Attending Physician: TRACEE HAM Indications: SYMPTOMATIC BRADYCARDIA __ Patient Medications: LORAZEPAM, FLUOXETINE, ACETAMINOPHEN, ONDANSETRON, RANITIDINE __ Pre-procedure Summary: Protocol: Standard Heart Rate Started: 02/16/17 1409 Minimum: 42 BPM Weight: 235 LBS Ended: 02/17/17 1309 Maximum: 103 BPM Height: 65" Duration: 23 HOURS Average: 59 BPM _ INTERPRETATIONS/OBSERVATIONS: 1. BASIC RHYTHM: SINUS BRADYCARDIA, RATE 42 BPM TO 100 BPM, AVERAGE 60 BPM 2. RARE PAC'S AND PVC'S 3. NO ST-T WAVE CHANGES FROM BASELINE 4. ACTIVITY LOG NOT MAINTAINED MTDD
[2017-02-18] MEDS: SODIUM CHLORIDE 1,000 ML IV SCH (13:52)
--- NOTE | 2017-02-18 14:12 | HP ---
DATE OF SERVICE: 02/17/17 CHIEF COMPLAINT: Dizziness and weakness. 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 Gordon. Heart rate was 45 and jumped up to 60, hypotensive mildly. Labs showed hgb 10.9, d-dimer mildly elevated at 602, BUN and Creatinine normal. Urine negative and toxicology showed the benzodiazepine positive. CT with contrast and PE protocol done which showed negative for the pulmonary embolism. In review of sinus bradycardia and weakness and tiredness the patient is being admitted to observation for dehydration, heat exhaustion and bradycardia. REVIEW OF SYSTEMS: CONSTITUTIONAL: No fever, no chills. Weakness and tiredness. HEENT: Normal. ENDOCRINE: No weight gain; no weight loss. CVS: No chest pain. No PND, no orthopnea. Shortness of breath. No PND, no orthopnea. Dizziness, light headedness. and no energy. RESPIRATORY: No cough, no congestion. No hemoptysis. GI: No nausea, no vomiting. No abdominal pain. No melena. : No hematuria. No polyuria. MUSCULOSKELETAL: No joint swelling. PSYCHIATRIC: Not anxious. No depression. No suicidal thoughts. No homicidal thoughts. SKIN: Intact, no open lesions. PAST MEDICAL HISTORY: GERD Depression Anxiety PAST SURGICAL HISTORY: Tonsillectomy Hysterectomy PERSONAL HISTORY: The patient does not smoke or drink. No alcohol and no drugs. Family history is significant for the breast cancer. MEDICATIONS: Prozac Zantac Zofran Ativan ALLERGIES: Codeine Tramadol PHYSICAL EXAMINATION: V/S: Blood pressure 109/73m, respiratory rate 16, heart rate 60, temperature 98.2. HEENT: Atraumatic, normocephalic. No scleral icterus. Pallor positive. Mucosa dry. No icterus. NECK: Supple. No JVD, no bruit. No lymphadenopathy. No thyromegaly. HEART: S1, S2 normal. No murmur. No cyanosis or clubbing. No ascites. LUNGS: Decreased and clear to auscultation. No rales or rhonchi. ABDOMEN: Soft, nontender. Bowel sounds are active. No CVA tenderness. No rigidity or guarding. EXTREMITIES: No cyanosis, clubbing or pedal edema. MUSCULOSKELETAL: Normal joints, no swelling. NEUROLOGIC: The patient is awake, alert and oriented to times 3. SKIN: Intact; no open lesions. LYMPHATIC: No lymph nodes palpable. LABS: WBC 4.89, hgb 10.9, hct 33.5, plt count 244, D-dimer 602, sodium 138, potassium 4.1, chloride 103, bicarb 24, BUN 16, creatinine 0.84, lactic acid 7.1, calcium 9.8. First set of cardiac enzymes are negative. Urine negative. Toxicology positive for Benzo. ASSESSMENT: 1. Symptomatic bradycardia 2. Hypotension 3. Anemia, lower GI bleed 4. Dizziness 5. Lightheadedness 6. Obesity 7. Depression 8. Anxiety PLAN: 1. Admit patient to the observation 2. IV fluids 3. Holter Monitoring 4. Daily I&O's 5. Hold the Ativan Will follow the patient in daily rounds. TIME SPENT: MORE THAN 70 minutes MTDD
--- NOTE | 2017-02-18 14:18 | PN ---
DATE OF SERVICE: 02/16/17 SUBJECTIVE: This is a 41-year-old female admitted with severe dizziness and light- headedness. The patient is still feeling same. She has had mild hypotension around 100 systolic. Heart rate has been 55 to 60. No irregular beats on the holter monitoring. REVIEW OF SYSTEMS: CONSTITUTIONAL: Fatigue. No fever, no chills. HEENT: Normal. ENDOCRINE: No weight gain, no weight loss. CVS: No angina symptoms. No CHF symptoms. No palpitations. No atypical chest pain for CAD. No shortness of breath. No PND, no orthopnea. RESPIRATORY: No cough, no hemoptysis. GI: No nausea, no vomiting. No abdominal pain. : No hematuria. No polyuria. MUSCULOSKELETAL: No joint swelling.a SURFACER: Dizziness; lightheadedness. PSYCHIATRIC: Not anxious. No depression. No suicidal thoughts. No homicidal thoughts. SKIN: Intact. No rash. PHYSICAL EXAMINATION: V/S: BP 102/65, respiratory rate 14, heart rate 56, temperature 97.6. HEENT: Normocephalic, atraumatic. Mucosa dry, pallor positive. No icterus. NECK: Supple. No JVD, no carotid bruit. No lymphadenopathy. LUNGS: Clear to auscultation. No rales or rhonchi. HEART: S1, S2 normal. No S3. No murmur, gallop or regurgitation. ABDOMEN: Soft, nontender. Bowel sounds active. No rigidity. No rebound or guarding. No CVA tenderness. EXTREMITIES: No clubbing, cyanosis or pedal edema. MUSCULOSKELETAL: No joint swelling. NEUROLOGIC: Awake, alert, oriented times three. No focal deficit. LYMPHATIC: No lymph nodes palpable. SKIN: Intact. LABS: White count 5.40, hemoglobin 10.8, hematocrit 33.1, platelet count 227. Sodium 139, potassium 4.0, chloride 104, bicarb 23, BUN 18, creatinine 0.97. Two sets of the cardiac enzymes are negative. ASSESSMENT: 1. SYMPTOMATIC LUISA 2. HYPOTENSION - RULE OUT MEDICATION VERSUS DEHYDRATION 3. DEPRESSION/ANXIETY PLAN: 1. Normal Saline 250 bolus 2. Anemia profile 3. Awaiting Lyme's serology 4. Orthostatic hypotension monitoring 5. Will follow with the patient in daily rounds TIME SPENT: More than 55 minutes (will change admission to regular admit) [facility] [place]
--- NOTE | 2017-03-02 08:59 | DS ---
DATE OF SERVICE: 02/18/17 FINAL DIAGNOSIS: 1. NEAR SYNCOPE, MOST LIKELY VASOVAGAL, BUT MAYBE FROM THE MEDICATION SIDE EFFECTS. 2. ANEMIA, RULE OUT GI COMPONENT, WILL BE GETTING A GI EVALUATION AN OUTPATIENT. 3. BRADYCARDIA, SINUS 4. HISTORY OF DEPRESSION 5. HYSTERECTOMY 6. GASTROESOPHAGEAL REFLUX DISEASE 7. TONSILLECTOMY PLAN: 1. Discharge the patient home. 2. Iron tablets, over the counter. 3. Celexa 20 mg p.o. daily. 4. Stop Ativan, Prozac and Zofran. 5. Continue the Zantac 300 mg p.o. twice daily. 6. No spicy food or fried food. 7. Follow up at the [facility]. As per the patient, she wants to move from [facility] to . DISEASE SPECIFIC EDUCATION: About dehydration, near syncope, dizziness was discussed with the patient. 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 She came to the emergency room. Heart rate initially was 45. The patient was found to have dehydration and at that time was admitted to the hospital for the observation. She was started on IV fluids. By the next day, the patient was still feeling dizzy, woozy, not able to stand up well, so she was admitted to regular admission. Urine drug screen was positive for the Benzodiazepines. Three sets of cardiac enzymes were negative. Hemoglobin was low at 10.9, 10.8. Iron profile was done which showed the iron deficiency anemia. Holter Monitoring was done, which showed a rate of [address] of the head and CT of the chest were negative. Echocardiogram showed left ventricular hypertrophy, mild. Orthostatic hypotension was negative, but gradually the patient starting feeling better with IV fluids. She was up and about walking and did not have any complications. At that time, the patient was planning to be discharged home. She was advised to take the salt as the patient is hypotensive, which can increase some blood pressures for patient. Lifestyle modification was discussed with the patient. She verbalized understanding. TIME SPENT: MORE THAN 55 MINUTES TODAY [facility]
== END 2017-02-18 14:15 | disposition home or self-care (01) | DRG 312 ==
LOC: ED 06:52 → MEDSURG A 11:48 → OBSVTOIN 02-17 09:45
PROVIDERS: ADMIT Emergency Medicine; ATTEND Emergency Medicine
DX: R55 Syncope and collapse (principal); R00.1 Bradycardia, unspecified; D64.9 Anemia, unspecified; E86.0 Dehydration; R61 Generalized hyperhidrosis; R79.1 Abnormal coagulation profile; R53.1 Weakness; M79.662 Pain in left lower leg; I95.9 Hypotension, unspecified; K21.9 Gastro-esophageal reflux disease without esophagitis; F41.8 Other specified anxiety disorders; R53.81 Other malaise; F13.90 Sedative, hypnotic, or anxiolytic use, unspecified, uncomplicated; Z79.899 Other long term (current) drug therapy
CPT/HCPCS: 36415; 80053; 80306; 81001; 82465; 82550; 82553; 82607; 82728; 82746; 82962; 83540; 83550; 83605; 83880; 84145; 84443; 84466; 84484; 85025; 85045; 85379; 85610; 86617; 87040; 93005; 93010; 93227; 99284

== ENCOUNTER 2017-03-30 12:51 | Outpatient (CLI) | END 2017-03-30 12:52 | disposition home or self-care (01) | LOC: RAD 12:51 | PROVIDERS: ATTEND Emergency Medicine | DX: Z12.31 Encounter for screening mammogram for malignant neoplasm of breast (principal) | CPT/HCPCS: 77067 ==

== ENCOUNTER 2017-03-31 12:09 | Outpatient (CLI) | payer OTHER | END 2017-03-31 12:10 | disposition home or self-care (01) | LOC: CAR 12:09 | PROVIDERS: ATTEND Physician Assistant | DX: Z79.899 Other long term (current) drug therapy (principal) | CPT/HCPCS: 93005; 93010 ==

== ENCOUNTER 2017-04-01 08:17 | Outpatient (CLI) ==
[2017-04-01 08:36] LABS: BASOPHILS % (AUTO) 0.5 % (0.0-3.0); EOSINOPHILS # (AUTO) 0.1 K/ul (0.0-0.7); EOSINOPHILS % (AUTO) 1.7 % (0.0-7.0); HEMATOCRIT 35.2 % (37.0-47.0); HEMOGLOBIN 11.7 g/dl (12.0-16.0); IMMATURE GRANULOCYTE % (AUTO) 0.3 % (0.0-5.0); LYMPHOCYTES # (AUTO) 1.3 K/uL (0.60-3.4); LYMPHOCYTES % (AUTO) 22.8 (10.0-50.0); MEAN CORPUSCULAR HGB CONC 33.2 (31.8-35.4); MEAN CORPUSCULAR VOLUME 84.2 fl (81.0-99.0); MONOCYTES # (AUTO) 0.5 K/uL (0.4-2.0); MONOCYTES % (AUTO) 8.3 (0-10); NEUTROPHILS # (AUTO) 3.9 K/ul (2.0-6.9); NEUTROPHILS % (AUTO) 66.4; PLATELET COUNT 256 10^3/uL (140-440); RED BLOOD COUNT 4.18 10^6/ul (4.20-5.40); WHITE BLOOD COUNT 5.88 K/ul (4.6-10.2)
--- NOTE | 2017-04-01 10:01 | US ---
EXAM: Ultrasound abdomen complete. HISTORY: Abdominal pain, nausea and vomiting COMPARISON: CT 01/06/2017 TECHNIQUE: Abdominal, real time with image documentation: Complete. FINDINGS: Liver: Normal. No intrahepatic biliary dilatation. Portal venous flow is normal direction. Gallbladder: Absent. Common bile duct: 0.5 cm. Pancreas: Visualized portions are unremarkable. Spleen: Normal, length 10.7 cm. Right kidney: 9.1 cm length. No hydronephrosis. Left kidney: 9.8 cm in length. No hydronephrosis. Aorta: Visualized portions are normal in caliber. IVC: Visualized portions are normal in caliber. IMPRESSION: No sonographic abnormality of the abdomen.
== END 2017-04-01 08:18 | disposition home or self-care (01) ==
LOC: RAD 08:17
PROVIDERS: ATTEND Internal Medicine Gastroenterology
DX: R10.9 Unspecified abdominal pain (principal)
CPT/HCPCS: 36415; 85025

== ENCOUNTER 2017-05-10 13:16 | Outpatient (CLI) ==
[2017-05-10 13:21] LABS: FLU INTERNAL QC INTERNAL QC VALID; RAPID FLU A NEGATIVE (NEGATIVE); RAPID FLU B NEGATIVE (NEGATIVE)
== END 2017-05-10 13:17 | disposition home or self-care (01) ==
LOC: LAB 13:16
PROVIDERS: ATTEND Emergency Medicine
DX: J06.9 Acute upper respiratory infection, unspecified (principal)
CPT/HCPCS: 87651; 87804; 87880

== ENCOUNTER 2017-11-04 11:13 | Emergency (ER) | payer OTHER ==
[2017-11-04 11:18] VITALS: BP 127/80; TEMP 97.6; BMI 41.9
[2017-11-04] MEDS ORDERED: ROCEPHIN IM STA (11:58)
[2017-11-04] MEDS ORDERED: LIDOCAINE HCL 1% SDV IM STA (11:58)
--- NOTE | 2017-11-04 12:02 | ED.PDOC ---
General ED Provider: Dr. MAGGY ARRIAZA Chief Complaint: Urinary Problem Stated Complaint: DYSURIA Time Seen by Physician: 11:30 Mode of Arrival: Walk-In Information Source: Patient Exam Limitations: No limitations Primary [facility] Nursing and Triage Documentation Reviewed and Agree: Yes Reviewed sepsis parameters & appropriate labs ordered?: Yes System Inflammatory Response Syndrome: Not Applicable Sepsis Protocol: For patient's 13 years and over: Temp is 96.8 and below OR 101 and greater Pulse >90 BPM Resp >20/minute Acutely Altered Mental Status Are patient's symptoms suggestive of a new infection, such as: -Pneumonia -Skin, Soft Tissue -Endocarditis -UTI -Bone, Joint Infection -Implantable Device -Acute Abdominal Infection -Wound Infection -Meningitis -Blood Stream Catheter Infection -Unknown System Inflammatory Response Syndrome: Not Applicable Complaint Exam - Complaint/Exam Patient Complains of: Reports: Dysuria Onset/Duration: 2 DAYS Symptoms Are: Still present Timing: Intermittent Initial Severity: Moderate Current Severity: Moderate Location of Pain: Reports: Suprapubic. Denies: Right, Left, Flank Character: Reports: Burning Aggravating: Reports: Urination Alleviating: Reports: None Associated Signs and Symptoms: Reports: Dysuria. Denies: Diaphoresis, Back pain , Fever, Hematuria, Constipation, Blood in stool, Rectal pain, Appetite change, Nausea, Vomiting, Decreased urine output, Increased urine frequency, Increased thirst, Decreased activity, Lethargy, Abdominal Pain, Bubble bath use, Vaginal bleeding, Vaginal discharge, Genital swelling, Genital blisters, Retained foreign body Ectopic Risk Factors: Reports: None Ovarian Torsion Risk Factors: Reports: None Surgical Obstruction Risk Factors: Reports: None RH Status: Unknown Abdominal Findings: Present: None Differential Diagnoses: UTI Review of Systems - Review Of Systems Constitutional: Reports: No symptoms Eyes: Reports: No symptoms Ears, Nose, Mouth, Throat: Reports: No symptoms Respiratory: Reports: No symptoms Cardiac: Reports: No symptoms GI: Reports: No symptoms : Reports: Dysuria Musculoskeletal: Reports: No symptoms Skin: Reports: No symptoms Neurological: Reports: No symptoms Endocrine: Reports: No symptoms Hematologic/Lymphatic: Reports: No symptoms All Other Systems: Reviewed and Negative Past Medical History - Past Medical History Previously Healthy: Yes Endocrine: Reports: None Cardiovascular: Reports: None Respiratory: Reports: None Hematological: Reports: None Gastrointestinal: Reports: None Genitourinary: Reports: None Neuro/Psych: Reports: Migraine, Depression Musculoskeletal: Reports: None Cancer: Reports: None Last Menstrual Period: hysterectomy - Surgical History General Surgical History: Reports: Hysterectomy, Cholecystectomy, Tonsillectomy - Family History Family History: Reports: None - Social History Smoking Status: Never smoker Hx Substance Use: No Alcohol Screening: None Physical Exam - Physical Exam Appearance: Well-appearing, No pain distress, Well-nourished Eyes: [place], EOMI, Conjunctiva clear ENT: Ears normal, Nose normal, Oropharynx normal Respiratory: Airway patent, Breath sounds clear, Breath sounds equal, Respirations nonlabored Cardiovascular: RRR, Pulses normal, No rub, No murmur GI/: Soft, Nontender, No masses, Bowel sounds normal, No Organomegaly Musculoskeletal: Normal strength, ROM intact, No edema, No calf tenderness Skin: Warm, Dry, Normal color Neurological: Sensation intact, Motor intact, Reflexes intact, Cranial nerves intact, Alert, Oriented Psychiatric: Affect appropriate, Mood appropriate Critical Care Note - Critical Care Note Total Time (mins): 0 Course - Course Orders, Labs, Meds: Lab Review 11/04/17 11:30 Urine Color [place] Urine Clarity Slightly Urine pH 5.0 Ur Specific [place] 1.025 Urine Protein 1+ Urine Glucose (UA) Trace Urine Ketones Trace Urine Blood 2+ Urine Nitrite Positive Urine Bilirubin 1+ Urine Urobilinogen 1.0 Ur Leukocyte Esterase 3+ Urine Microscopic WBC Tntc Ur Squamous Epith Cells Not present Urine Bacteria 1+ Orders Category Date Time Status URINALYSIS C & S IF INDICATED Stat LAB 11/04/17 11:30 Completed URINE CULTURE Stat LAB 11/04/17 11:30 Received Ceftriaxone Sodium [Rocephin] MEDS 11/04/17 11:58 Stat 1 gm IM ONCE STA Lidocaine HCl/Pf [Lidocaine HCl 1% Sdv] MEDS 11/04/17 11:58 Stat 2.1 ml IM ONCE STA Medications Discontinued Medications Generic Name Dose Route Start Last Admin Trade Name Evelyn PRN Reason Stop Dose Admin Ceftriaxone Sodium 1 gm 11/04/17 11:58 Rocephin IM 11/04/17 11:59 ONCE STA Lidocaine HCl 2.1 ml 11/04/17 11:58 Lidocaine Hcl 1% Sdv IM 11/04/17 11:59 ONCE STA Vital Signs: Temp Pulse Resp BP Pulse Ox 11/04/17 11:14 97.6 F 70 16 127/80 98 Departure - Departure Time of Disposition: 12:01 Disposition: HOME SELF-CARE Discharge Problem: Urinary symptoms, Urinary tract infectious disease Instructions: Urinary Tract Infection in Women (ED) Condition: Good Pt referred to PMD for follow-up: No IPMP verified?: No Additional Instructions: Please call your Family Physician as soon as possible to schedule a follow-up appointment. Prescriptions: Sulfamethoxazole/Trimethoprim [Bactrim Ds 800/160 mg] 1 tab PO Q12HR #10 tablet Allergies/Adverse Reactions: Allergies codeine Allergy (Severe, Verified 11/04/17 11:20) difficulty breathing Notified to get medical alert necklace tramadol Allergy (Severe, Verified 11/04/17 11:20) difficulty breathing Home Medications: Ambulatory Orders Ferrous Sulfate 325 mg PO BID #60 tablet 02/18/17 Fluoxetine HCl [Prozac] 60 mg PO DAILY 11/04/17 Lorazepam 0.5 mg PO TID PRN 11/04/17 Pantoprazole Sodium [Protonix] 40 mg PO DAILY 11/04/17 Quetiapine Fumarate [Seroquel] 25 mg PO DAILY 11/04/17 Sulfamethoxazole/Trimethoprim [Bactrim Ds 800/160 mg] 1 tab PO Q12HR #10 tablet 11/04/17 Topiramate [Topamax] 50 mg PO BID 11/04/17
== END 2017-11-04 12:35 | disposition home or self-care (01) ==
LOC: ED 11:13
DX: N39.0 Urinary tract infection, site not specified (principal)
CPT/HCPCS: 81001; 87086; 96372; 99282

== ENCOUNTER 2018-02-13 15:28 | Outpatient (CLI) | END 2018-02-13 15:29 | disposition home or self-care (01) | LOC: LAB 15:28 | PROVIDERS: ATTEND Emergency Medicine | DX: D50.9 Iron deficiency anemia, unspecified (principal); F32.1 Major depressive disorder, single episode, moderate; F43.10 Post-traumatic stress disorder, unspecified; E66.9 Obesity, unspecified | CPT/HCPCS: 36415; 80053; 84443; 85025; 93005; 93010 ==